=== PATIENT | female | born 1940 | race Hispanic/Latino ===

== ENCOUNTER → 2023-03-25 | Day surgery (SDC) | payer MEDICARE, BC ==
[~2023-03-25] MED LIST: ATENOLOL50 MG PO; ATORVASTATIN CA20 MG PO; FENTANYL CITRATE/PF 100MCG/2 ML INJ ONE; IRBESARTAN150 MG PO; LACTATED RINGER'S 1,000 ML ONE; MIDAZOLAM HCL 2 MG/2 ML VIAL ONE; MULTI-VITAMIN1 EACH PO; OR PHACO EYE KIT ONE; PREOP PHACO EYE KIT ONE; PRILOSEC OTC20 MG PO
[2023-03-25 10:40] VITALS: BP 139/83
== END | disposition home or self-care (01) ==
LOC: OR 07:00
PROVIDERS: ATTEND Ophthalmology
DX: H25.12 Age-related nuclear cataract, left eye (principal); E78.5 Hyperlipidemia, unspecified; I10 Essential (primary) hypertension; Z79.899 Other long term (current) drug therapy
CPT/HCPCS: 66984; 93005; J2250; J3010; J7121; V2632

== ENCOUNTER → 2023-04-08 | Day surgery (SDC) | payer MEDICARE, BC ==
[2023-04-08 10:07] VITALS: TEMP 97.4
[2023-04-08 10:27] VITALS: BP 132/73; PULSE 64; RESP 18; O2SAT 98
== END | disposition home or self-care (01) ==
LOC: OR 06:49
PROVIDERS: ATTEND Ophthalmology
DX: H25.11 Age-related nuclear cataract, right eye (principal); I10 Essential (primary) hypertension; E78.5 Hyperlipidemia, unspecified; K21.9 Gastro-esophageal reflux disease without esophagitis; Z79.899 Other long term (current) drug therapy
CPT/HCPCS: 66984; J7121; J2250; V2632